=== PATIENT | male | born 1980 | race Asian ===

== ENCOUNTER 2020-02-11 11:25 | Emergency (ER) | payer BC, OTHER ==
[2020-02-11] MEDS ORDERED: Sodium Chloride 0.9% 10 ML Syringe FLUSH PRN (11:37)
[2020-02-11] MEDS ORDERED: Sodium Chloride 0.9% 2.5 ML Syringe FLUSH PRN (11:37)
[2020-02-11] MEDS ORDERED: Morphine 4 MG/ML Syringe IVPUSH ONE (11:41)
[2020-02-11] MEDS ORDERED: Ondansetron 4 MG/2 ML SDV IVPUSH ONE (11:41)
--- NOTE | 2020-02-11 11:45 | EDM.PDOC ---
ED HPI GENERAL MEDICAL PROBLEM - General Chief Complaint: Gastrointestinal Problem Stated Complaint: RESP. ISSUES Time Seen by Provider: 02/11/20 11:45 Source of Information: Reports: Patient History Limitations: Reports: No Limitations - History of Present Illness INITIAL COMMENTS - FREE TEXT/NARRATIVE: HISTORY AND PHYSICAL: History of present illness: Patient is a 39-year-old male presents to the ED with complaint of RUQ abdominal pain. Patient states it started about 2 hours prior to arrival to the ED. He states pain is constant and worsening. He states he had some nausea earlier but this has subsided. He denies fevers, chills, vomiting, diarrhea, back pain, cough, chest pain, shortness of breath, dysuria, hematuria, testicular pain. He denies significant past medical or surgical history. Denies alcohol use. Smokes 1ppd x 20 years. Review of systems: As per history of present illness and below otherwise all systems reviewed and negative. Past medical history: As per history of present illness and as reviewed below otherwise noncontributory. Surgical history: As per history of present illness and as reviewed below otherwise noncontributory. Social history: No reported history of drug or alcohol abuse. Family history: As per history of present illness and as reviewed below otherwise noncontributory. Physical exam: General: Patient sitting comfortably in no acute distress and nontoxic appearing HEENT: Atraumatic, normocephalic, pupils reactive, negative for conjunctival pallor or scleral icterus, mucous membranes moist, throat clear, neck supple, nontender, trachea midline. No meningeal signs. Lungs: Clear to auscultation, breath sounds equal bilaterally, chest nontender. Heart: S1S2, regular, negative for clicks, rubs, or overt murmur. Abdomen: RUQ tenderness to palpation. Soft, nondistended. Negative for masses or hepatosplenomegaly. Negative for costovertebral tenderness. No rigidity, rebound, guarding. Pelvis: Stable nontender. Genitourinary: Deferred. Rectal: Deferred. Extremities: Atraumatic, negative for cords or calf pain. Neurovascular unremarkable. Neuro: Awake, alert, oriented. Cranial nerves II through XII unremarkable. Cerebellum unremarkable. Motor and sensory unremarkable throughout. Exam nonfocal. Notes: Diagnostics: CBC, CMP, lipase, abdomen US Therapeutics: 1L NS IV 4mg Morphine IV 4mg Zofran IV Prescriptions: Bentyl Tramadol Impression: Cholelithiasis Plan: Avoid fried and fatty foods as instructed Take bentyl as prescribed. You may take Tramadol as needed for severe pain Follow up with general surgery, please call the number provided to schedule an appointment Return to ED as needed as discussed Definitive disposition and diagnosis as appropriate pending reevaluation and review of above. Right Abdominal Pain Score (Numeric/FACES): 10 - Related Data Allergies Allergy/AdvReac Type Severity Reaction Status Date / Time No Known Allergies Allergy Verified 02/11/20 11:31 Home Meds: Home Meds Dicyclomine [Bentyl] 10 mg PO QIDACANDBED #20 cap 02/11/20 [Rx] Venlafaxine [Effexor] 75 mg PO DAILY 02/11/20 [History] traMADol HCl [Tramadol HCl] 50 mg PO Q6H PRN #12 tablet 02/11/20 [Rx] Past Medical History - Past Health History Medical/Surgical History: Denies Medical/Surgical History Psychiatric History: Reports: Depression - Infectious Disease History Infectious Disease History: Reports: None Social & Family History - Family History Family Medical History: Noncontributory - Tobacco Use Smoking Status *Q: Unknown Ever Smoked - Caffeine Use Caffeine Use: Reports: None - Recreational Drug Use Recreational Drug Use: No ED ROS GENERAL - Review of Systems Review Of Systems: Comprehensive ROS is negative, except as noted in HPI. ED EXAM, GI/ABD - Physical Exam Exam: See Below (see dictation) Course - Vital Signs Last Recorded V/S: Last Vital Signs Temp 97.7 F 02/11/20 11:32 Pulse 77 02/11/20 13:32 Resp 17 02/11/20 13:32 BP 140/68 02/11/20 13:32 Pulse Ox 99 02/11/20 13:32 - Orders/Labs/Meds Orders: Active Orders 24 hr Category Date Time Status UA RFX EMILIA AND CULT IF INDIC [URIN] Stat Lab 02/11/20 11:37 Ordered Sodium Chloride 0.9% [Saline Flush] Med 02/11/20 11:37 Ordered 10 ml FLUSH ASDIRECTED PRN Sodium Chloride 0.9% [Saline Flush] Med 02/11/20 11:37 Ordered 2.5 ml FLUSH ASDIRECTED PRN Saline Lock Insert [OM.PC] Stat Oth 02/11/20 11:37 Ordered Medication Orders Sodium Chloride (Saline Flush) 10 ml FLUSH ASDIRECTED PRN PRN Reason: Keep Vein Open Last Admin: 02/11/20 11:51 Dose: 10 ml Sodium Chloride (Saline Flush) 2.5 ml FLUSH ASDIRECTED PRN PRN Reason: Keep Vein Open Last Admin: 02/11/20 11:51 Dose: 2.5 ml Labs: Laboratory Tests 02/11/20 02/11/20 Range/Units 11:48 11:48 WBC 10.65 (4.0-11.0) K/uL RBC 5.59 (4.50-5.90) M/uL Hgb 17.0 (13.0-17.0) g/dL Hct 48.5 (38.0-50.0) % MCV 86.8 (80.0-98.0) fL MCH 30.4 (27.0-32.0) pg MCHC 35.1 (31.0-37.0) g/dL RDW Std Deviation 41.5 (28.0-62.0) fl RDW Coeff of Jessy 13 (11.0-15.0) % Plt Count 199 (150-400) K/uL MPV 10.90 (7.40-12.00) fL Neut % (Auto) 66.4 (48.0-80.0) % Lymph % (Auto) 25.8 (16.0-40.0) % [place] % (Auto) 5.3 (0.0-15.0) % Eos % (Auto) 2.1 (0.0-7.0) % Baso % (Auto) 0.4 (0.0-1.5) % Neut # (Auto) 7.1 H (1.4-5.7) K/uL Lymph # (Auto) 2.8 H (0.6-2.4) K/uL [place] # (Auto) 0.6 (0.0-0.8) K/uL Eos # (Auto) 0.2 (0.0-0.7) K/uL Baso # (Auto) 0.0 (0.0-0.1) K/uL Nucleated RBC % 0.0 /100WBC Nucleated RBCs # 0 K/uL Sodium 139 (136-148) mmol/L Potassium 4.0 (3.5-5.1) mmol/L Chloride 101 (98-107) mmol/L Carbon Dioxide 30.7 (21.0-32.0) mmol/L BUN 17 (7.0-18.0) mg/dL Creatinine 1.1 (0.8-1.3) mg/dL Est Cr Clr Drug Dosing 98.96 mL/min Estimated GFR (MDRD) > 60.0 ml/min Glucose 122 H (74-106) mg/dL Calcium 9.9 (8.5-10.1) mg/dL Total Bilirubin 0.8 (0.2-1.0) mg/dL AST 39 H (15-37) IU/L ALT 122 H (14-63) IU/L Alkaline Phosphatase 79 (46-116) U/L Total Protein 7.4 (6.4-8.2) g/dL Albumin 4.4 (3.4-5.0) g/dL Globulin 3.0 (2.6-4.0) g/dL Albumin/Globulin Ratio 1.5 (0.9-1.6) Lipase 147 (73-393) U/L Meds: Medications Generic Name Dose Route Start Last Admin Trade Name Freq PRN Reason Stop Dose Admin Sodium Chloride 10 ml 02/11/20 11:37 02/11/20 11:51 Saline Flush FLUSH 10 ml ASDIRECTED PRN Administration Keep Vein Open Sodium Chloride 2.5 ml 02/11/20 11:37 02/11/20 11:51 Saline Flush FLUSH 2.5 ml ASDIRECTED PRN Administration Keep Vein Open Discontinued Medications Generic Name Dose Route Start Last Admin Trade Name Freq PRN Reason Stop Dose Admin Sodium Chloride 1,000 mls @ 999 mls/hr 02/11/20 11:46 02/11/20 11:51 Normal Saline IV 02/11/20 12:46 999 mls/hr STAT ONE Administration Morphine Sulfate 4 mg 02/11/20 11:41 02/11/20 11:51 Morphine IVPUSH 02/11/20 11:42 4 mg ONETIME ONE Administration Ondansetron HCl 4 mg 02/11/20 11:41 02/11/20 11:51 Zofran IVPUSH 02/11/20 11:42 4 mg ONETIME ONE Administration Departure - Departure Time of Disposition: 13:39 Disposition: Home, Self-Care 01 Condition: Good Clinical Impression: Cholelithiasis, Biliary colic - Discharge Information Prescriptions: Dicyclomine [Bentyl] 10 mg PO QIDACANDBED #20 cap traMADol HCl [Tramadol HCl] 50 mg PO Q6H PRN #12 tablet PRN Reason: Pain (Severe 7-10) Forms: ED Department Discharge Additional Instructions: The following information is given to patients seen in the emergency department who are being discharged to home. This information is to outline your options for follow-up care. We provide all patients seen in our emergency department with a follow-up referral. The need for follow-up, as well as the timing and circumstances, are variable depending upon the specifics of your emergency department visit. If you don't have a primary care physician on staff, we will provide you with a referral. We always advise you to contact your personal physician following an emergency department visit to inform them of the circumstance of the visit and for follow-up with them and/or the need for any referrals to a consulting specialist. The emergency department will also refer you to a specialist when appropriate. This referral assures that you have the opportunity for follow-up care with a specialist. All of these measure are taken in an effort to provide you with optimal care, which includes your follow-up. Under all circumstances we always encourage you to contact your private physician who remains a resource for coordinating your care. When calling for follow-up care, please make the office aware that this follow-up is from your recent emergency room visit. If for any reason you are refused follow-up, please contact the [facility] Emergency Department at and asked to speak to the emergency department charge nurse. [facility] Specialty Care - General Surgery Professional Building [address] [place] [address], [address] [place] [address] Avoid fried and fatty foods as instructed Take bentyl as prescribed. You may take Tramadol as needed for severe pain Follow up with general surgery, please call the number provided to schedule an appointment Return to ED as needed as discussed Sepsis Event Note - Evaluation Sepsis Screening Result: No Definite Risk - Focused Exam Vital Signs: Vital Signs Temp Pulse Resp BP Pulse Ox 02/11/20 13:32 77 17 140/68 99 02/11/20 11:32 97.7 F 89 18 145/76 H 97 Date Exam was Performed: 02/11/20 Time Exam was Performed: 13:39 - My Orders Last 24 Hours: My Active Orders 02/11/20 11:37 UA RFX EMILIA AND CULT IF INDIC [URIN] Stat Sodium Chloride 0.9% [Saline Flush] 10 ml FLUSH ASDIRECTED PRN Sodium Chloride 0.9% [Saline Flush] 2.5 ml FLUSH ASDIRECTED PRN Saline Lock Insert [OM.PC] Stat - Assessment/Plan Last 24 Hours: My Active Orders 02/11/20 11:37 UA RFX EMILIA AND CULT IF INDIC [URIN] Stat Sodium Chloride 0.9% [Saline Flush] 10 ml FLUSH ASDIRECTED PRN Sodium Chloride 0.9% [Saline Flush] 2.5 ml FLUSH ASDIRECTED PRN Saline Lock Insert [OM.PC] Stat
[2020-02-11] MEDS ORDERED: Sodium Chloride 0.9% 1,000 ML IV ONE (11:46)
[2020-02-11 12:26] LABS: BLOOD UREA NITROGEN,BUN 17 mg/dL (7.0-18.0); CARBON DIOXIDE,CO2 30.7 mmol/L (21.0-32.0); CHLORIDE,CL 101 mmol/L (98-107); GLUCOSE RANDOM 122 mg/dL (74-106); LIPASE 147 U/L (73-393); SODIUM,NA 139 mmol/L (136-148)
--- NOTE | 2020-02-11 13:23 | US ---
Limited abdominal ultrasound: Multiple real-time images were obtained of the upper right abdomen. Comparison: No previous abdominal imaging is available. Liver shows no focal parenchymal abnormality. Gallbladder shows at least 2 gallstones. Sludge is also noted within the gallbladder. No gallbladder wall thickening or biliary duct dilatation is appreciated. Right kidney shows no hydronephrosis or discrete mass. Right kidney has a length of 10.8 cm. Pancreas was not visualized. Impression: 1. Nonvisualized pancreas. 2. At least 2 gallstones with gallbladder sludge. No gallbladder wall thickening or biliary duct dilatation is seen. 3. No additional abnormality is appreciated on right upper quadrant abdominal ultrasound. Diagnostic code #3 This report was dictated in MDT
== END 2020-02-11 13:45 | disposition home or self-care (01) ==
LOC: MW.ED 11:25
DX: K80.70 Calculus of gallbladder and bile duct without cholecystitis without obstruction (principal); F32.9 Major depressive disorder, single episode, unspecified; Z79.899 Other long term (current) drug therapy
CPT/HCPCS: 76705; 80053; 83690; 85025; 96374; 96375; 99284; J2270; J2405; J7030